=== PATIENT | male | born 1950 | race Caucasian/White ===

== ENCOUNTER 2016-08-20 14:21 | Outpatient (CLI) | payer MEDICARE, BC ==
[2015-10-16 21:39] VITALS: O2SAT 96
== END 2016-08-20 14:22 | disposition home or self-care (01) | DRG 556 ==
LOC: CONVCARE 14:21
PROVIDERS: ATTEND Orthopaedic Surgery
DX: M79.674 Pain in right toe(s) (principal)
CPT/HCPCS: 36415; 73660; 84550

== ENCOUNTER 2016-09-03 14:47 | Outpatient (CLI) | payer MEDICARE, BC ==
[2015-10-16 21:39] VITALS: O2SAT 96
== END 2016-09-03 14:48 | disposition home or self-care (01) | DRG 554 ==
LOC: CONVCARE 14:47
PROVIDERS: ATTEND Orthopaedic Surgery
DX: M19.071 Primary osteoarthritis, right ankle and foot (principal)
CPT/HCPCS: 36415; 84550

== ENCOUNTER 2017-05-27 01:37 | Emergency (ER) | payer MEDICARE, BC ==
[2017-05-27] MEDS ORDERED: ASPIRIN 81 MG CHEWABLE CTB ONE (01:42)
[2017-05-27] MEDS ORDERED: ASPIRIN 81 MG CHEWABLE CTB PO STA (01:49)
[2017-05-27] MEDS ORDERED: SODIUM CHLORIDE 0.9% FLUSH 10 ML SOL IV PRN (01:49)
[2017-05-27] MEDS ORDERED: NITROGLYCERIN 0.4 MG TAB SL PRN (01:49)
[2017-05-27 02:14] LABS: BASOPHILS % (AUTO) 1 % (0-3); EOSINOPHILS % (AUTO) 4 % (0-9); HEMATOCRIT 45 % (39-53); MEAN CORPUSCULAR HGB CONC 37.2 gm/dl (32.0-36.0); MEAN CORPUSCULAR VOLUME 87 fL (80-100); MONOCYTES % (AUTO) 13.8 % (0-12); NEUTROPHILS % (AUTO) 51.5 % (37-80)
[2017-05-27 02:26] LABS: CALCIUM 8.6 mg/dl (8.5-10.1); GLOM FILT RATE 59 mL/min (>60); POTASSIUM 3.5 mMol/L (3.5-5.1); SODIUM 143 mMol/L (136-145)
[2017-05-27 02:34] LABS: NORMAL RBCS PRESENT
[2017-05-27 02:48] VITALS: BP 143/85; PULSE 84; RESP 15; TEMP 98.8; O2SAT 96
== END 2017-05-27 03:09 | disposition home or self-care (01) | DRG 313 ==
LOC: ED 01:37
DX: R07.9 Chest pain, unspecified (principal); I25.2 Old myocardial infarction; Z95.1 Presence of aortocoronary bypass graft
CPT/HCPCS: 71045; 80048; 82550; 84484; 85025; 85610; 85730; 93005; 99285

== ENCOUNTER 2017-09-06 08:02 | Day surgery (SDC) | payer MEDICARE, BC ==
[2017-09-06] MEDS ORDERED: PROPOFOL 500 MG/50 ML EMU IV ONE (08:26)
[2017-09-06 09:39] VITALS: BP 124/81; PULSE 68; RESP 20; TEMP 97.3; O2SAT 96
== END 2017-09-06 09:45 | disposition home or self-care (01) | DRG 951 ==
LOC: SURG 08:02
PROVIDERS: ATTEND Surgery
DX: Z12.11 Encounter for screening for malignant neoplasm of colon (principal); D12.0 Benign neoplasm of cecum; D12.5 Benign neoplasm of sigmoid colon
CPT/HCPCS: J2704

== ENCOUNTER 2018-06-02 19:40 | Emergency (ER) | payer BC, MEDICARE, OTHER ==
[2018-06-02 19:41] VITALS: O2SAT 96
[2018-06-02 20:25] VITALS: BP 145/80; PULSE 94; RESP 18; TEMP 96.5
== END 2018-06-02 20:40 | disposition home or self-care (01) | DRG 921 ==
LOC: ED 19:40
DX: T81.89XA Other complications of procedures, not elsewhere classified, initial encounter (principal); S31.109A Unspecified open wound of abdominal wall, unspecified quadrant without penetration into peritoneal cavity, initial encounter; Y83.8 Other surgical procedures as the cause of abnormal reaction of the patient, or of later complication, without mention of misadventure at the time of the procedure
CPT/HCPCS: 99282; G0168